=== PATIENT | female | born 1965 | race Caucasian/White ===

== ENCOUNTER 2016-09-27 06:14 | Inpatient (IN) | payer OTHER ==
[~2016-09-27] VITALS: Ht 175.3 cm; Wt 76.0 kg
[2016-09-27] MEDS ORDERED: ONDANSETRON 4 MG INJ IV PRN ×2 (06:30→08:30)
[2016-09-27] MEDS ORDERED: ACETAMINOPHEN 325 MG TAB PO PRN ×2 (06:30→08:30)
--- NOTE | 2016-09-27 06:33 | ERA ---
ER Documentation Chief Complaint Date/Time DATE: 09/27/16 TIME: 06:25 Chief Complaint tele admit from [facility]; holding- sent for CP, +meth use HPI This is a 51-year-old female that presents to the emergency department transferred from [facility] [place] for admission to the telemetry service under the care of the hospitalist Dr. cabrera. The patient had to be re-seen in our emergency department as there was currently no telemetry beds available. According to the patient she indicates that 12 hours ago, 6 PM yesterday evening she developed bilateral chest wall tenderness. She indicated she had been shoveling mud and attributed to muscle skeletal pain. She indicated however roughly 9 PM yesterday evening the pain became a pressure-like sensation in the left side of her chest that radiated to her neck and arm. The patient also indicates that she utilize crystal meth roughly 48 hours ago. She has a history of hypertension but is noncompliant with her benazepril. She takes [place] for analgesic control. She had no associated symptoms of nausea vomiting or diaphoresis. The patient indicates that she has a family history of coronary artery disease as her father of a myocardial infarction at roughly 49 years of age. She indicates that the pain has been intermittent she is currently chest pain-free. She received aspirin and nitroglycerin at [facility] [place]. ROS All systems reviewed and are negative except as per history of present illness. Allergies Allergies: Coded Allergies: No Known Drug Allergies (Verified Allergy, Unknown, 09/27/16) Physical Exam Vitals Vital Signs Date Time Temp Pulse Resp B/P Pulse Ox O2 Delivery O2 Flow Rate FiO2 09/27/16 06:17 97.6 75 20 135/88 100 Physical Exam Constitutional:Well-developed. Well-nourished. HEENT:Normocephalic. Atraumatic.Pupils were equal round reactive to light. Moist mucous membranes.No tonsillar exudates. Neck: No nuchal rigidity. No lymphadenopathy. No posterior cervical spine tenderness or step-offs. Respiratory: Not using accessory muscles of respiration.Lungs were clear to auscultation bilaterally. No rhonchi. No rales. No wheezing. Cardiovascular: Regular rate regular rhythm.No murmurs. No rubs were appreciated.S1, S2 normal. Distal pulses are palpable 2+ bilaterally. GI: Abdomen was soft. Nontender. Non Distended. No pulsatile abdominal masses or bruits. No rebound. No guarding. Bowel sounds were present and normal. Muscle skeletal: Full range of motion of both the upper and lower extremities bilaterally.Normal muscle tone.No assymetrical calf tenderness or swelling. Skin: No petechia, no purpura. No lesions on the palms or the soles of the feet. No maculopapular rash. NEURO: Patient was alert, awake, orientated x3.No facial droop. Gait observed and normal with no ataxia.Speech had regular rate and rhythm. No focal neurological deficits. Results 24 hrs Current Medications Medications (Trade) Dose Ordered Sig/Joce Route PRN Reason Start Time Stop Time Status Last Admin Dose Admin Ondansetron HCl (Zofran Inj) 4 mg ER BRIDGE PRN IV NAUSEA AND/OR VOMITING 09/27/16 06:30 2 06:29 Acetaminophen (Tylenol Tab) 650 mg ER BRIDGE PRN PO MILD PAIN/FEVER 09/27/16 06:30 09/28/16 06:29 Procedures/MDM The patient presented to the emergency department with chest pain. My clinical evaluation and workup was to distinguish minor causes of chest pain from acute life threatening conditions such as myocardial infarction, pulmonary embolism, aortic dissection, esophageal rupture, cardiac tamponade. The patient was placed on a fluid designer and continuous pulse oximetry. The patient had IV access already received at [facility] [place] in the right antecubital region. I did not repeat any ancillary laboratory work as the patient is directly admitted to the hospitalist Dr. Taylor for further evaluation. I did review the patient's EKG that had been taken at 12:52 AM on September 27, 2016 which was a sinus rhythm at 97 bpm with an incomplete right bundle branch block and PVCs. Departure Diagnosis: Primary Impression: Chest pain Qualified Code: R07.9 - Chest pain, unspecified type Condition: CASA Brown Sep 27, 2016 06:33
[2016-09-27] MEDS ORDERED: morphine 2 MG INJ IV PRN (08:30)
[2016-09-27] MEDS ORDERED: LORAZEPAM 2 MG INJ IV PRN (08:30)
[2016-09-27] MEDS ORDERED: NACL 0.9% 3 ML SYG IV SCH (08:30)
[2016-09-27] MEDS ORDERED: ALBUTEROL/IPRATROPIUM (NEB) 3 ML AMP HHN PRN (08:30)
[2016-09-27] MEDS ORDERED: NITROGLYCERIN (SL) 0.4 MG TAB SL PRN (08:30)
[2016-09-27] MEDS: METOPROLOL 25 MG TAB PO SCH ×2 (09:00→21:43)
[2016-09-27] MEDS: ASPIRIN 81 MG TAB PO SCH (11:03)
[2016-09-27] MEDS: ENOXAPARIN 40 MG/0.4 ML SYG SC SCH (11:03)
--- NOTE | 2016-09-27 11:09 | HP ---
DATE OF ADMISSION: 09/27/2016 TIME SEEN: 8 a.m. CHIEF COMPLAINT: Chest pain. HISTORY OF PRESENT ILLNESS: The patient is a 51-year-old female with a history of mitral valve prol apse, endocarditis diagnosed 10 years ago, and hypertension, noncompliant with her lisinopril, who w as transferred from [facility] because of insurance reason for further workup and managemen t of chest pain. She stated around 6 p.m. in the evening yesterday she stayed while she was shoveli ng some mud she experienced diffuse chest pain. She states that every time her heart beats she feels pain, which she cannot really characterize. This pain never really went away, but several hours la ter the pain became more intense and it started radiating to her left arm as well as her left neck. She also reported associated shortness of breath. As such, she decided to go to the hospital and f rom [place] admission she was transferred here because of insurance reasons. She denied any asso ciated nausea, vomiting, or diaphoresis. She stated that she never really had chest pain before and this is the first time that she actually came to the hospital for chest pain. She uses methampheta mine quite often and the last time she used was 2 days ago. She is noncompliant with her medication , as far as managing her hypertension is concerned, saying that she prefers using home remedies and such. When she was at [place] the EKG with no ST-T wave abnormality and her first troponin was negative . Currently, labs are pending here. Initial vitals was a systolic blood pressure in the 130s and n ow it is in the 150s. She states she received 4 aspirin at [place] and when asked whether or not that helped the pain, she stated that by the time she got to [place] the pain almost resolved an yway, so she is not sure. Of note, the pain is somehow reproducible on palpation, but the characteri stic is not 100% the same. She was diagnosed with endocarditis 10 years ago which she stated was se condary to her accidentally stepping on a nail. She denied a history of IV drug use. She did smoke for a total of 30 years about 1 pack per day. She states her dad of "a heart attack" at the ag e of 47 and her grandfather of a stroke at a very old age. REVIEW OF SYSTEMS: A 12-point review was performed, negative except as mentioned in the HPI. PAST MEDICAL HISTORY: As per HPI. PAST SURGICAL HISTORY: Denies. SOCIAL HISTORY: Smoked 1 pack per day for 30 years. She uses methamphetamine very often. FAMILY HISTORY: As mentioned in HPI. ALLERGIES: NO KNOWN DRUG ALLERGIES. HOME MEDICATIONS: She was supposed to be on benazepril for high blood pressure, but she has not marcus en it for quite a while. PHYSICAL EXAMINATION: VITAL SIGNS: Blood pressure 150/80, heart rate 75, respiratory rate 20, temperature 98.6, oxygen sa turation 95% on room air. GENERAL: Somewhat disheveled, but she is awake and answering questions appropriately. She was aler t and oriented. HEENT: No obvious head deformity. Pupils are reactive to light. Extraocular muscles intact. CARDIOVASCULAR: Regular rate and rhythm. No extra sounds. LUNGS: Clear. ABDOMEN: Soft, nontender, nondistended. Positive bowel sounds. EXTREMITIES: No edema. NEUROLOGIC: No focal deficits. LABORATORY: Currently pending here, but the first troponin was negative at [place]. IMPRESSION: 1. Chest pain, possibly musculoskeletal, but needs to rule out ACS. 2. Hypertension. 3. History of endocarditis, 10 years ago. 4. History of mitral valve prolapse. 5. History of methamphetamine abuse. PLAN: We will admit to telemetry unit. Her first troponin at [place] was negative, but add itional troponins here. We will obtain a 2D echo as well as a 12-lead EKG. Her chest pain is someho w reproducible on palpitation, but the fact that it actually radiates to her left arm all the way to her fingers as well as to her neck, and the fact that she is a methamphetamine user as well as a st cait family history with her dad passing away from an CT at the age of 47, is a reason to admit her and to rule out ACS. She will be placed on oxygen, beta alejandro and we will provide as needed nitro glycerin and morphine. We will check A1c, fasting lipids, TSH and as mentioned earlier, a 2D echo a nd a 12-lead EKG. I will also place a cardiology consult. The patient had been advised about the importance of smoking cessation as well as advised to stop us ing methamphetamines. Further workup and management will be per clinical course. Dictated By: TIA RAMIREZ/HENRY Conf#: [id number] DID#: [id number]
[2016-09-27 11:42] LABS: ADD SCAN DIFF NO
[2016-09-27 11:47] LABS: BASOPHIL # 0.1 10^3/ul (0.0-0.1); EOSINOPHILS # 0.5 10^3/ul (0.0-0.5); EOSINOPHILS % 6.3 % (0.0-7.0); HEMATOCRIT 37.1 % (37.0-47.0); HEMOGLOBIN 10.9 g/dl (12.0-16.0); LYMPHOCYTES # 2.1 10^3/ul (0.8-2.9); LYMPHOCYTES % 25.1 % (15.0-51.0); MEAN CORPUSCULAR HEMOGLOBIN 22.6 pg (29.0-33.0); MEAN CORPUSCULAR HGB CONC 29.4 g/dl (32.0-37.0); MEAN PLATELET VOLUME 9.6 fl (7.4-10.4); MONOCYTE # 0.5 10^3/ul (0.3-0.9); NEUTROPHIL # 5.1 10^3/ul (1.6-7.5); NEUTROPHILS % 61.4 % (39.0-77.0); PLATELET COUNT 366 10^3/UL (140-415); RED BLOOD COUNT 4.82 10^6/ul (4.20-5.40); RED CELL DISTRIBUTION WIDTH 16.6 % (11.5-14.5); WHITE BLOOD COUNT 8.2 10^3/ul (4.8-10.8)
[2016-09-27 12:12] LABS: ALBUMIN 4.1 g/dl (3.3-4.9); CHLORIDE 103 mmol/L (97-110); POTASSIUM 4.1 mmol/L (3.5-5.1); SODIUM 142 mmol/L (135-144)
--- NOTE | 2016-09-27 12:12 | CONS ---
DATE OF ADMISSION: 09/27/2016 DATE OF CONSULTATION: 09/27/2016 TYPE OF CONSULTATION. REFERRING PHYSICIAN:. Dr. Taylor REASON FOR EVALUATION: Chest pain. HISTORY OF PRESENT ILLNESS: Ms. Paula is a 51-year-old woman with hypertension, dyslipidemia, histo ry of methamphetamine abuse, prior history of endocarditis on unknown valve 10 years ago, who comes to the hospital now for evaluation of chest pain. The patient said this is a pressure-like sensatio n, lasting for less than a few minutes. She was initially admitted to [facility] then transferred here for further risk stratification based on the data there. LABORATORY DATA: White blood cell count was 10.2, but sodium 139, creatinine was normal at 0.8. Sh e did not rule in for acute myocardial infarction. Troponin was less than 0.01. ASSESSMENT AND PLAN: Currently, the patient is chest pain-free and fairly comfortable. For now, I think conservative therapy would be warranted. The patient does appear to have some evidence of PV Cs on her EKG with some aberrant conduction. She also has some nonspecific ST-T changes. Given ris k factors of hypertension and prior history of amphetamine use, I think it might not be unreasonable to risk stratify the patient with a stress test. We will try to facilitate a stress test for her later today or tomorrow. ALLERGIES: NO KNOWN DRUG ALLERGIES. SOCIAL HISTORY: The patient does smoke, does not drink, does not use any drugs now, but she has a h istory of ____ drug abuse. MEDICATIONS: Currently the patient is on aspirin and beta alejandro ____from the hospital. REVIEW OF SYSTEMS: CONSTITUTIONAL: No fevers, no chills, no recent weight change. HEENT: No changes. CARDIAC: No chest pain reported now. RESPIRATORY: Shortness of breath. GASTROINTESTINAL: No nausea, vomiting, diarrhea, constipation. GENITOURINARY: No dysuria, hematuria. NEUROLOGIC: No focal deficits. HEMATOLOGIC: ____ PSYCHIATRIC: History of psychiatric disease. PHYSICAL EXAMINATION: VITAL SIGNS: Heart rate 67, blood pressure 135/65. She is afebrile. GENERAL: She is a thin woman in no acute distress, alert and oriented x3, aware of her condition. HEAD: Normocephalic, atraumatic. Eyes anicteric. NECK: Supple. JVD 7 to 8 cm. There is no lymphadenopathy, no thyromegaly. HEART: Regular with soft holosystolic murmur at the apex. PMI is nondisplaced. I do not hear an S 3. LUNGS: Coarse at the bases. ABDOMEN: Distended, bowel sounds are present. There is no hepatosplenomegaly. GENITOURINARY: Exam is intact. EXTREMITIES: Show no clubbing, cyanosis, edema. SKIN: Does not show any discoloration. NEUROLOGICAL: She is able to move her extremities. LABORATORY DATA: Troponins are at 0.01, creatinine 0.7. ASSESSMENT: 1. Chest pain. The patient ____ chest pain. She has several risk factors for coronary artery dis ease. We will check the patient with a stress test while she is here. 2. History of endocarditis. I hear a murmur at the valve. We will follow up with a 2D echo. 3. Hypertension. Blood pressure modestly well controlled. Continue current optimization. ____ a gents needed. 4. Premature ventricular contractions. The patient has PVCs. Keep her electrolytes in range. 5. History of drug abuse. Discontinue all drug use advised. I would like to thank Dr. Taylor for referring this patient for my evaluation. Dictated By: MARU ANDERSON MD ML/HENRY Conf#: [id number] DID#: [id number]
[2016-09-27 12:14] LABS: CHOLESTEROL 183 mg/dl (100-200); CREATININE 0.66 mg/dl (0.44-1.00)
[2016-09-27 12:15] LABS: ALANINE AMINOTRANSFERASE 35 IU/L (13-69); ALKALINE PHOSPHATASE 88 IU/L (42-121); ANION GAP 18 (8-16); ASPARTATE AMINO TRANSFERASE 32 IU/L (15-46); BILIRUBIN,INDIRECT 0.3 mg/dl (0-1.1); BILIRUBIN,TOTAL 0.3 mg/dl (0.2-1.3); BLOOD UREA NITROGEN 14 mg/dl (7-20); CALCIUM 9.1 mg/dl (8.4-10.2); CARBON DIOXIDE 25 mmol/L (21-31); GLUCOSE 88 mg/dl (70-220); TOTAL PROTEIN 7.5 g/dl (6.1-8.1); TRIGLYCERIDES 41 mg/dl (0-149)
[2016-09-27 12:16] LABS: CHOL/HDL RATIO 2.2 RATIO; HDL CHOLESTEROL 82 mg/dl (37-92); MAGNESIUM 1.9 mg/dl (1.7-2.5)
[2016-09-27 12:23] LABS: TROPONIN-I < 0.012 ng/ml (0.00-0.12)
[2016-09-27] MEDS ORDERED: REGADENOSON 0.4 MG/5 ML SYG ONE (15:43)
--- NOTE | 2016-09-27 15:47 | RADRPT ---
Echocardiogram Report Patient Name: HIREN ISLAS Gender: Female Date: 1965 Study Date: 27-Sep-2016 [employer] Specialist: Pop Hess RDCS Location: EKG Ref. Physician: TIA LAKHANI Quality: Good Procedures: Transthoracic echocardiogram with complete 2D, M-Mode, and doppler examination. Indications: Chest Pain. 2D/M Mode Doppler Measurement Value Normal Ranges Measurement Value Normal Ranges LVIDd 2D 3.7 3.5 - 5.6 cm AV Peak Shlomo 1.1 m/sec LVIDs 2D 2.0 2.1 - 4.1 cm AV Peak PG 5.0 mmHg FS 2D 44.3 % LVOT Peak Shlomo 0.7 m/sec LVPWd 2D 0.8 0.6 - 1.1 cm LVOT Peak PG 2.0 mmHg IVSd 2D 0.9 0.6 - 1.1 cm MV E Peak Shlomo 0.6 m/sec IVS/LVPW 2D 1.1 MV A Peak Shlomo 0.7 m/sec AoR Diam 2D 2.9 2.0 - 3.7 cm MV E/A 0.8 LA/Ao 2D 1 0 - 1 MV Decel Time 239 msec EDV 2D 49.0 cm3 MV E/A 0.8 ESV 2D 8.5 cm3 TR Peak Shlomo 3.5 m/sec LA Dimen 2D 3.3 2.3 - 4.0 cm TR Peak PG 50.0 mmHg RVSP 65.0 mmHg Findings Left Ventricle: Normal left ventricular systolic function. Normal left ventricular cavity size. Normal left ventricular wall thickness. Ejection fraction is visually estimated at 55 %. Tissue Doppler/Mitral Doppler indices are consistent with impaired relaxation (Stage I diastolic dysfunction). Right Ventricle: Moderate enlargement of right ventricle. Moderate right ventricular hypokinesis. Left Atrium: The left atrium is normal in size. Right Atrium: There is severe enlargement of right atrium. Mitral Valve: Mitral valve leaflets appear mildly thickened. Mild mitral annular calcification. Trace mitral regurgitation. Aortic Valve: Normal appearance of the aortic valve. No significant aortic stenosis or insufficiency. Tricuspid Valve: Estimated peak PA systolic pressure 65 mmHg. There is moderate to severe tricuspid regurgitation. Pulmonic Valve: Normal pulmonic valve appearance. Pericardium: Normal pericardium with no significant pericardial effusion. Aorta: Normal aortic root. IVC: Dilated IVC without respiratory collapse consistent with elevated right atrial pressure. Conclusions 1.Normal left ventricular systolic function. Normal left ventricular cavity size. Normal left ventricular wall thickness. Ejection fraction is visually estimated at 55 %. Tissue Doppler/Mitral Doppler indices are consistent with impaired relaxation (Stage I diastolic dysfunction). 2.Normal appearance of the aortic valve. No significant aortic stenosis or insufficiency. 3.Estimated peak PA systolic pressure 65 mmHg. There is moderate to severe tricuspid regurgitation. 4.Mitral valve leaflets appear mildly thickened. Mild mitral annular calcification. Trace mitral regurgitation. Electronically Signed By: Jalil Valadez 27-Sep-2016 15:47:04 -0800 Patient Name: HIREN ISLAS Study Date: 27-Sep-2016 [id number]
--- NOTE | 2016-09-27 16:09 | ECORPT ---
DATE OF SERVICE: 09/27/2016 LEXISCAN CARDIOLITE STRESS TEST REFERRING PHYSICIAN: Jess Luis MD REASON FOR EVALUATION: Chest pain, history of endocarditis. DESCRIPTION OF TEST: The patient was brought into the heart station. Initial blood pressure was 12 2/60. Heart rate was in the 80s. She had a successful Lexiscan injection. She tolerated the proce dure well. The imaging portion of the report will be dictated separately. Dictated By: MARU ANDERSON MD ML/NTS Conf#: [id number] DID#: [id number]
[2016-09-27 16:45] VITALS: TEMP 98.5
--- NOTE | 2016-09-27 16:45 | RADRPT ---
PROCEDURE: Lexiscan myocardial perfusion study CLINICAL INDICATION: 51 -year-old patient complaining of chest pain. TECHNIQUE: Lexiscan 0.4 mg intravenously separate acquisition gated myocardial perfusion SPECT usi ng Tc 99m Myoview 26.0 mCi intravenously at stress and Tc-99m Myoview, 9.5 mCi intravenously at rest was performed using the rest/stress sequence. Poststress Myoview SPECT images were obtained in the supine position. COMPARISON: No prior studies. FINDINGS: Perfusion images reveal no evidence of perfusion defects. Lexiscan post stress gated SPECT images demonstrate no wall motion abnormalities. IMPRESSION: 1. Normal study with no evidence of perfusion defects or wall motion abnormalities. 2. The left ventricle ejection fraction at stress is 50%. A call report was made to Dr. Valadez at 04:44 p.m. on September 27, 2016. RPTAT: HH .Madelyn Terrazas MD, Date Time Electronically viewed and signed by .Madelyn Terrazas MD, on 09/27/2016 16:45 .L/
[2016-09-27 18:39] VITALS: BP 142/74; PULSE 74; RESP 17
[2016-09-27 18:40] VITALS: Ht 175.3 cm; Wt 76.0 kg
[2016-09-27 18:45] VITALS: PULSE 59
[2016-09-27 20:06] VITALS: PULSE 75
[2016-09-27 20:49] VITALS: BP 165/82; RESP 20
[2016-09-27 23:29] VITALS: BP 120/61; RESP 20
[2016-09-28] VITALS (7 sets, daily range): BP systolic 122–131; BP diastolic 61–70; PULSE 40–69; RESP 17–18
[2016-09-28 07:48] LABS: ADD SCAN DIFF NO
[2016-09-28 07:55] LABS: POTASSIUM 4.3 mmol/L (3.5-5.1)
[2016-09-28 07:57] LABS: CREATININE 0.75 mg/dl (0.44-1.00)
[2016-09-28 07:58] LABS: CALCIUM 8.9 mg/dl (8.4-10.2); PHOSPHORUS 4.7 mg/dl (2.5-4.9)
[2016-09-28] MEDS: ASPIRIN 81 MG TAB PO SCH (08:26)
[2016-09-28] MEDS: METOPROLOL 25 MG TAB PO SCH (08:27)
[2016-09-28] MEDS: ENOXAPARIN 40 MG/0.4 ML SYG SC SCH (08:28)
[2016-09-28 09:14] LABS: BASOPHIL # 0.1 10^3/ul (0.0-0.1); BASOPHILS % 0.8 % (0.0-2.0); EOSINOPHILS # 0.5 10^3/ul (0.0-0.5); EOSINOPHILS % 7.7 % (0.0-7.0); HEMATOCRIT 32.3 % (37.0-47.0); HEMOGLOBIN 9.7 g/dl (12.0-16.0); LYMPHOCYTES # 2.2 10^3/ul (0.8-2.9); LYMPHOCYTES % 36.5 % (15.0-51.0); MEAN CORPUSCULAR HEMOGLOBIN 23.2 pg (29.0-33.0); MEAN CORPUSCULAR VOLUME 77.1 fl (82.0-101.0); MEAN PLATELET VOLUME 9.8 fl (7.4-10.4); MONOCYTE # 0.6 10^3/ul (0.3-0.9); MONOCYTES % 9.8 % (0.0-11.0); NEUTROPHIL # 2.8 10^3/ul (1.6-7.5); PLATELET COUNT 347 10^3/UL (140-415); RED BLOOD COUNT 4.19 10^6/ul (4.20-5.40); RED CELL DISTRIBUTION WIDTH 16.6 % (11.5-14.5); WHITE BLOOD COUNT 6.1 10^3/ul (4.8-10.8)
--- NOTE | 2016-09-28 14:20 | PDOCDIS ---
Discharge Instructions DIAGNOSIS Discharge Diagnosis: Chest pain. ACS ruled out. Substance abuse. CONDITION Patient Condition: Stable HOME CARE INSTRUCTIONS: Diet Instructions: Regular FOLLOW UP/APPOINTMENTS Appointments Duncan Renee MD Specialty: Internal Medicine Office Address: [address] [place] [address] [place], [place] [id number] Office OTHER ORDERS: Other Orders: 1. Take medications as per prescription. 2. Take a regular, preferably low-sodium diet as tolerated. 3. Resume activities as tolerated. 4. Follow-up with your primary care physician in 2 weeks. If you do not have a primary care physician, please call Dr. Duncan Renee's office. 5. Avoid using recreational drugs. 6. Call 911 or go to the nearest emergency room if you have chest pain. CARA PARRA NP Sep 28, 2016 14:20
[2016-09-28] MEDS ORDERED: METO-448 PO (14:21)
--- NOTE | 2016-09-28 17:39 | DS ---
DATE OF ADMISSION: 09/27/2016 DATE OF DISCHARGE: 09/28/2016 FINAL DIAGNOSES: 1. Chest pain. Acute coronary syndrome ruled out. 2. Essential hypertension. 3. Substance abuse. 4. Pulmonary hypertension. 5. Microcytic, hypochromic anemia. TUBING MACHINE TENDER: Jalil Valadez MD, Cardiology. HOSPITAL COURSE: This is a 51-year-old female with a history of mitral valve prolapse, endocarditis diagnosed 10 years ago and essential hypertension, noncompliant with her medical management, who was transferred from [facility] because of insurance reasons for further workup and management of chest pain. The patient denied any associated nausea, vomiting or diaphoresis along with the chest pain. The patient uses methamphetamine and is noncompliant with her medications. The patient was admitted to inpatient telemetry floor. A cardiology consult was obtained. Serial troponins were obtained. A 2D echocardiogram was obtained. The patient's serial troponins remained negative. The patient's 2D echocardiogram showed ejection fraction of 55% with stage I diastolic dysfunction. However, the patient's 2D echo showed pulmonary artery hypertension with estimated peak PA systolic pressure of 65 mmHg along with moderate to severe tricuspid regurgitation, the probable reason for the patient' s underlying pulmonary artery hypertension. The patient underwent a nuclear medicine cardiac stress test that was negative for any reversible perfusion defects. The patient was started on antihypertensives with improvement in the patient's blood pressure. The patient's fasting lipid panel was satisfactory. The patient's hemoglobin A1c was 5.8. The patient was noticed to have microcytic hypochromic anemia. The patient's H and H remained stable. The patient had a stable hospital course. The patient was cleared by consultants to be discharged home. The patient denied any chest pain at the time of discharge. DISCHARGE DISPOSITION/PLAN: The patient will be discharged home today. The patient was instructed to take a regular, preferably low-sodium diet as tolerated. She was instructed to take medications as per prescription. She was instructed to resume activities as tolerated. The patient was instructed to follow up with her primary care physician in 2 weeks and if she does not have a primary care physician, to please call Dr. Duncan Renee's office. The patient was instructed to avoid use of recreational drugs. The patient was instructed to call 911 or go to the nearest emergency room if she has any chest pain. The patient verbalized understanding of her discharge instructions. CONDITION AT DISCHARGE: Stable. DISCHARGE MEDICATION: Metoprolol 25 mg p.o. q.12h. PERTINENT LABORATORY AND DIAGNOSTIC DATA: 1. 2D echocardiogram. Ejection fraction of 55%. Stage I diastolic dysfunction. Estimated peak PA systolic pressure of 65 mmHg. There is moderate to severe tricuspid regurgitation. Trace mitral regurgitation. Mild mitral annular calcification. 2. Nuclear medicine cardiac stress test. Normal study with no evidence of perfusion defects or wall motion abnormalities. The left ventricular ejection fraction at stress is 50%. 3. Hemoglobin A1c 5.8. 4. Fasting lipid panel: Triglycerides 41, total cholesterol 183, LDL 93, HDL 82. 5. Latest CBC: WBC 6.1, hemoglobin 9.7, hematocrit 32.3, platelet count 347. 6. Latest BMP: Sodium 140, potassium 4.3, chloride 104, carbon dioxide 26, anion gap 14, BUN 15, creatinine 0.75, glucose 101, calcium 8.9, phosphorus 4.7 , magnesium 2.0. At this time, I would like to thank Dr. Valadez for seeing the patient and providing clinical recommendations. The case and management of this patient was fully discussed with Dr. Hogue. Approximately 35 minutes was spent on coordinating the discharge on this patient. CARA HOGUE MD, AM/HENRY Conf#: [id number] DID#: [id number] MTDD
== END 2016-09-28 16:06 | disposition home or self-care (01) | DRG 313 ==
LOC: E/R 06:14 → MS4 06:22 → FTE 19:07
PROVIDERS: ADMIT Internal Medicine; ATTEND Internal Medicine
DX: R07.9 Chest pain, unspecified (principal); I27.2 Other secondary pulmonary hypertension; F19.10 Other psychoactive substance abuse, uncomplicated; D64.9 Anemia, unspecified
CPT/HCPCS: 78452; 80048; 80053; 80061; 83036; 83735; 84100; 84443; 84484; 85025; 87081; 93005; 93017; 93306; 96372; A9500; A9505; J1650; J2785

== ENCOUNTER 2018-05-11 12:54 | Emergency (ER) | END 2018-05-11 13:51 | disposition home or self-care (01) ==